=== PATIENT | male | born 1940 | race Caucasian/White ===

== ENCOUNTER 2017-10-20 09:09 | Inpatient (IN) | payer MEDICARE, MEDICAID ==
--- NOTE | 2017-10-20 10:01 | EDM.PDOC ---
ED HPI GENERAL MEDICAL PROBLEM - General Chief Complaint: Respiratory Problem Stated Complaint: CHEST PAIN, SHORTNESS OF BREATH Time Seen by Provider: 10/20/17 09:49 Source of Information: Reports: Patient History Limitations: Reports: No Limitations - History of Present Illness INITIAL COMMENTS - FREE TEXT/NARRATIVE: Patient is a 77-year-old gentleman who presents to the emergency department this morning with a complaint of cough, chest pain, shortness of breath. Patient states that it began about 6 o'clock this morning, felt like there was an ache/nondescriptive pain in the middle of this chest, lasted for a little more than one hour and then resolved spontaneously. Patient states that he does has been coughing recently. Patient was seen by cylinder sander operator in [place] yesterday, and according to him and his son, no chest x-ray was done and he had no complaint at that time. Patient has a history of pulmonary fibrosis and hypertension. Patient denies fever, trauma, nausea, vomiting, diarrhea, out of country travel, or productive cough. Onset: Today Onset Date: 10/20/17 Duration: Hour(s): Location: Reports: Chest Quality: Reports: Dull Severity: Mild Improves with: Reports: Other (Spontaneously) Context: Reports: Other (At rest) Associated Symptoms: Reports: Cough. Denies: cough w sputum Treatments FISH HATCHERY MANAGER: Reports: Oxygen - Related Data Allergies Allergy/AdvReac Type Severity Reaction Status Date / Time PEANUTS Allergy STUFFY NOSE Uncoded 10/20/17 09:33 Home Meds: Home Meds Aspirin [Halfprin] 81 mg PO DAILY 09/25/13 [History] Lisinopril [Zestril] 20 mg PO BID 09/25/13 [History] amLODIPine [Norvasc] 10 mg PO DAILY 09/25/13 [History] Albuterol/Ipratropium [DuoNeb 3.0-0.5 MG/3 ML] 3 ml INH QID PRN 10/20/17 [ History] Budesonide/Formoterol Fumarate [Symbicort 160-4.5 Mcg Inhaler] 2 puff IH BID 07/08 [History] LORazepam [Ativan] 0.5 mg PO QID PRN 10/20/17 [History] Metoprolol Succinate [Toprol Xl] 50 mg PO DAILY 10/20/17 [History] Sulfamethoxazole/Trimethoprim [Bactrim Ds Tablet] 1 each PO DAILY 10/20/17 [ History] atorvaSTATin [Lipitor] 10 mg PO BEDTIME 10/20/17 [History] predniSONE [Prednisone] 20 mg PO BID 10/20/17 [History] Past Medical History HEENT History: Reports: Impaired Vision, Other (See Below) 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 Cardiovascular History: Reports: Hypertension Respiratory History: Reports: Pulmonary Fibrosis Gastrointestinal History: Reports: None Genitourinary History: Reports: None Musculoskeletal History: Reports: None - Infectious Disease History Infectious Disease History: Reports: None - Past Surgical History Cardiovascular Surgical History: Reports: None GI Surgical History: Reports: Cholecystectomy Male Surgical History: Reports: None Musculoskeletal Surgical History: Reports: None Social & Family History - Family History Family Medical History: Noncontributory - Tobacco Use Smoking Status *Q: Never Smoker Second Hand Smoke Exposure: Yes - Caffeine Use Caffeine Use: Reports: Coffee, Soda, Tea - Alcohol Use Days Per Week of Alcohol Use: 1 Number of Drinks Per Day: 1 Total Drinks Per Week: 1 - Recreational Drug Use Recreational Drug Use: No ED ROS GENERAL - Review of Systems Review Of Systems: ROS reveals no pertinent complaints other than HPI. Constitutional: Reports: No Symptoms HEENT: Reports: No Symptoms Respiratory: Reports: Shortness of Breath, Pleuritic Chest Pain, Cough. Denies : Sputum Cardiovascular: Reports: Chest Pain Endocrine: Reports: No Symptoms GI/Abdominal: Reports: No Symptoms : Reports: No Symptoms Musculoskeletal: Reports: No Symptoms Skin: Reports: No Symptoms Neurological: Reports: No Symptoms Psychiatric: Reports: No Symptoms Hematologic/Lymphatic: Reports: No Symptoms Immunologic: Reports: No Symptoms ED EXAM, GENERAL - Physical Exam Exam: See Below Exam Limited By: No Limitations General Appearance: Alert, WD/WN, No Apparent Distress Nose: Normal Inspection, Normal Mucosa, No Blood Throat/Mouth: Normal Inspection, Normal Oropharynx, No Airway Compromise Head: Atraumatic, Normocephalic Neck: Normal Inspection, Supple, Non-Tender Respiratory/Chest: No Respiratory Distress, Rales (Bilaterally) Cardiovascular: Regular Rate, Rhythm, No Murmur GI/Abdominal: Normal Bowel Sounds, Soft, Non-Tender Back Exam: Normal Inspection. No: CVA Tenderness (L), CVA Tenderness (R) Extremities: Normal Inspection, Non-Tender, No Pedal Edema, Normal Capillary Refill Neurological: Alert, Oriented, Normal Cognition Psychiatric: Normal Affect, Normal Mood Skin Exam: Warm, Dry, Intact, Normal Color, No Rash Lymphatic: No Adenopathy EKG INTERPRETATION EKG Date: 10/20/17 Time: 09:30 Rhythm: NSR Rate (Beats/Min): 91 [place]: Normal P-Wave: Present QRS: Normal ST-T: Normal QT: Normal Course - Vital Signs Last Recorded V/S: Last Vital Signs Temp 99.0 F 10/20/17 09:20 Pulse 93 10/20/17 09:20 Resp 30 H 10/20/17 09:20 BP 126/52 L 10/20/17 09:20 Pulse Ox 92 L 10/20/17 09:20 - Orders/Labs/Meds Orders: Active Orders 24 hr Category Date Time Status EKG Documentation Completion [RC] ASDIRECTED Care 10/20/17 09:39 Active Chest 2V [CR] Stat Exams 10/20/17 09:50 Ordered COMPREHENSIVE METABOLIC PN,CMP [CHEM] Stat Lab 10/20/17 09:51 Ordered TROPONIN I [CHEM] Stat Lab 10/20/17 09:25 Received EKG 12 Lead [EK] Routine Ther 10/20/17 09:39 Ordered Labs: Laboratory Tests 10/20/17 Range/Units 09:25 WBC 18.1 H (5.0-10.0) 10^3/uL RBC 4.11 L (4.50-6.00) 10^6/uL Hgb 12.6 L (13.0-17.0) g/dL Hct 38.7 L (40.0-52.0) % MCV 94.2 H D (82.0-92.0) fL MCH 30.7 (27.0-31.0) pg MCHC 32.6 (32.0-36.0) g/dL RDW 15.1 H (11.5-14.5) % Plt Count 219 (150-300) 10^3/uL MPV 7.6 (7.4-10.4) fL Neut % (Auto) 84.4 H (50.0-70.0) % Lymph % (Auto) 10.4 L (20.0-40.0) % [place] % (Auto) 1.9 L (2.0-8.0) % Eos % (Auto) 0.6 L (1.0-3.0) % Baso % (Auto) 2.7 H (0.0-1.0) % Neut # (Auto) 15.3 H (2.5-7.0) 10^3/uL Lymph # (Auto) 1.9 (1.0-4.0) 10^3/uL [place] # (Auto) 0.3 (0.1-0.8) 10^3/uL Eos # (Auto) 0.1 (0.1-0.3) 10^3/uL Baso # (Auto) 0.5 H (0.0-0.1) 10^3/uL - Radiology Interpretation Free Text/Narrative:: Two-view chest x-ray read abnormal with no new obvious findings from previous CT on 2017 by radiology. However, concern for underlying pneumonia, left lower lobe with WBC elevated to 18 - Re-Assessments/Exams Free Text/Narrative Re-Assessment/Exam: 10/20/17 10:57 Patient afebrile, nontoxic appearing, vital signs stable. Discussed case with Kraig Cedillo, [facility] provider and patient will be admitted inpatient to their service. Departure - Departure Time of Disposition: 11:00 Disposition: Admitted As Inpatient 64 Condition: Fair Clinical Impression: Pulmonary fibrosis Pneumonia Qualifiers: Pneumonia type: due to unspecified organism Laterality: left Lung location: lower lobe of lung Qualified Code(s): J18.1 - Lobar pneumonia, unspecified organism - Discharge Information Referrals: Ayla Martines MD [Primary Care Provider] - - My Orders Last 24 Hours: My Active Orders 10/20/17 09:25 TROPONIN I [CHEM] Stat 10/20/17 09:39 EKG Documentation Completion [RC] ASDIRECTED EKG 12 Lead [EK] Routine 10/20/17 09:50 Chest 2V [CR] Stat 10/20/17 09:51 COMPREHENSIVE METABOLIC PN,CMP [CHEM] Stat - Assessment/Plan Last 24 Hours: My Active Orders 10/20/17 09:25 TROPONIN I [CHEM] Stat 10/20/17 09:39 EKG Documentation Completion [RC] ASDIRECTED EKG 12 Lead [EK] Routine 10/20/17 09:50 Chest 2V [CR] Stat 10/20/17 09:51 COMPREHENSIVE METABOLIC PN,CMP [CHEM] Stat Assessment:: Pneumonia Plan: Admit inpatient to [facility]
[2017-10-20 10:11] LABS: CHLORIDE,CL 98 mmol/L (98-115); SODIUM,NA 134 mmol/L (136-145)
[2017-10-20] MEDS ORDERED: cefTRIAXone 1 GM Vial IVPUSH ONE (10:18)
[2017-10-20] MEDS ORDERED: Azithromycin 250 MG Tab PO ONE (10:18)
[2017-10-20] MEDS ORDERED: Sodium Chloride 0.9% 1,000 ML IV ONE (10:33)
--- NOTE | 2017-10-20 12:22 | PCM.HP ---
H&P History of Present Illness - General Date of Service: 10/20/17 Admit Problem/Dx: Admission Diagnosis/Problem Admission Diagnosis/Problem Pneumonia Source of Information: Patient, Old Records, Provider, RN History Limitations: Reports: No Limitations - Related Data Allergies/Adverse Reactions: Allergies Allergy/AdvReac Type Severity Reaction Status Date / Time PEANUTS Allergy STUFFY NOSE Uncoded 10/20/17 09:33 Home Medications: Home Meds Aspirin [Halfprin] 81 mg PO DAILY 09/25/13 [History] Lisinopril [Zestril] 40 mg PO DAILY 09/25/13 [History] Albuterol/Ipratropium [DuoNeb 3.0-0.5 MG/3 ML] 3 ml INH QID PRN 10/20/17 [ History] Budesonide/Formoterol Fumarate [Symbicort 160-4.5 Mcg Inhaler] 2 puff IH BID 07/08 [History] LORazepam [Ativan] 0.5 mg PO QID PRN 10/20/17 [History] Metoprolol Succinate [Toprol Xl] 50 mg PO DAILY 10/20/17 [History] atorvaSTATin [Lipitor] 10 mg PO DAILY 10/20/17 [History] predniSONE [Prednisone] 20 mg PO BID 10/20/17 [History] Levofloxacin [Levaquin] 750 mg PO DAILY #5 tab 10/23/17 [Rx] Past Medical History HEENT History: Reports: Impaired Vision, Other (See Below) 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 Cardiovascular History: Reports: Hypertension Respiratory History: Reports: Pulmonary Fibrosis Gastrointestinal History: Reports: None Genitourinary History: Reports: None Musculoskeletal History: Reports: None - Infectious Disease History Infectious Disease History: Reports: None - Past Surgical History Cardiovascular Surgical History: Reports: None GI Surgical History: Reports: Cholecystectomy Male Surgical History: Reports: None Musculoskeletal Surgical History: Reports: None Social & Family History - Family History Cardiac: Reports: None Respiratory: Reports: Interstitial Lung Disease GI: Reports: None : Reports: None OBGYN: Reports: None Musculoskeletal: Reports: None Neurological: Reports: None Psychiatric: Reports: None Endocrine/Metabolic: Reports: None Hematologic: Reports: None Immunologic: Reports: None Dermatologic: Reports: None Oncologic: Reports: None - Tobacco Use Smoking Status *Q: Never Smoker Second Hand Smoke Exposure: No - Caffeine Use Caffeine Use: Reports: Tea - Alcohol Use Days Per Week of Alcohol Use: 1 Number of Drinks Per Day: 1 Total Drinks Per Week: 1 - Recreational Drug Use Recreational Drug Use: No H&P Review of Systems - Review of Systems: Review Of Systems: See Below General: Reports: Malaise. Denies: Weight Loss, Weight Gain HEENT: Reports: No Symptoms Pulmonary: Reports: Shortness of Breath, Cough, Sputum Cardiovascular: Reports: Dyspnea on Exertion, Blood Pressure Problem. Denies: Chest Pain, Edema Exam - Exam Exam: See Below - Vital Signs Vital Signs: Last Vital Signs Temp 99.0 F 10/20/17 09:20 Pulse 85 10/20/17 10:45 Resp 30 H 10/20/17 10:45 BP 107/39 L 10/20/17 10:45 Pulse Ox 92 L 10/20/17 11:02 Weight: 140 lb - Exam Quality Assessment: Supplemental Oxygen General: Alert, Oriented, Mild Distress HEENT: Mucosa Moist & [place] Neck: Supple Lungs: Rales, Rhonchi. No: Normal Respiratory Effort, Rub, Stridor Cardiovascular: Normal S1, Normal S2 - Patient Data Lab Results Last 24 hrs: Laboratory Results - last 24 hr 10/20/17 10/20/17 10/20/17 Range/Units 09:25 09:25 09:25 WBC 18.1 H (5.0-10.0) 10^3/uL RBC 4.11 L (4.50-6.00) 10^6/uL Hgb 12.6 L (13.0-17.0) g/dL Hct 38.7 L (40.0-52.0) % MCV 94.2 H D (82.0-92.0) fL MCH 30.7 (27.0-31.0) pg MCHC 32.6 (32.0-36.0) g/dL RDW 15.1 H (11.5-14.5) % Plt Count 219 (150-300) 10^3/uL MPV 7.6 (7.4-10.4) fL Neut % (Auto) 84.4 H (50.0-70.0) % Lymph % (Auto) 10.4 L (20.0-40.0) % [place] % (Auto) 1.9 L (2.0-8.0) % Eos % (Auto) 0.6 L (1.0-3.0) % Baso % (Auto) 2.7 H (0.0-1.0) % Neut # (Auto) 15.3 H (2.5-7.0) 10^3/uL Lymph # (Auto) 1.9 (1.0-4.0) 10^3/uL [place] # (Auto) 0.3 (0.1-0.8) 10^3/uL Eos # (Auto) 0.1 (0.1-0.3) 10^3/uL Baso # (Auto) 0.5 H (0.0-0.1) 10^3/uL Sodium 134 L (136-145) mmol/L Potassium 3.9 (3.3-5.3) mmol/L Chloride 98 (98-115) mmol/L Carbon Dioxide 33.1 H (21.0-32.0) mmol/L BUN 24 (6-25) mg/dL Creatinine 0.72 (0.51-1.17) mg/dL Est Cr Clr Drug Dosing 74.72 mL/min Estimated GFR (MDRD) > 60 mL/min Glucose 83 (70-110) mg/dL Calcium 8.3 L (8.7-10.3) mg/dL Total Bilirubin 0.4 (0.2-1.0) mg/dL AST 14 L (15-37) U/L ALT 28 (12-78) U/L Alkaline Phosphatase 47 (46-116) IU/L Troponin I 0.04 (0.00-0.070) ng/mL B-Natriuretic Peptide (0-100) pg/mL Total Protein 6.0 L (6.4-8.2) g/dL Albumin 2.22 L (3.00-4.80) g/dL 10/20/17 Range/Units 09:25 WBC (5.0-10.0) 10^3/uL RBC (4.50-6.00) 10^6/uL Hgb (13.0-17.0) g/dL Hct (40.0-52.0) % MCV (82.0-92.0) fL MCH (27.0-31.0) pg MCHC (32.0-36.0) g/dL RDW (11.5-14.5) % Plt Count (150-300) 10^3/uL MPV (7.4-10.4) fL Neut % (Auto) (50.0-70.0) % Lymph % (Auto) (20.0-40.0) % [place] % (Auto) (2.0-8.0) % Eos % (Auto) (1.0-3.0) % Baso % (Auto) (0.0-1.0) % Neut # (Auto) (2.5-7.0) 10^3/uL Lymph # (Auto) (1.0-4.0) 10^3/uL [place] # (Auto) (0.1-0.8) 10^3/uL Eos # (Auto) (0.1-0.3) 10^3/uL Baso # (Auto) (0.0-0.1) 10^3/uL Sodium (136-145) mmol/L Potassium (3.3-5.3) mmol/L Chloride (98-115) mmol/L Carbon Dioxide (21.0-32.0) mmol/L BUN (6-25) mg/dL Creatinine (0.51-1.17) mg/dL Est Cr Clr Drug Dosing mL/min Estimated GFR (MDRD) mL/min Glucose (70-110) mg/dL Calcium (8.7-10.3) mg/dL Total Bilirubin (0.2-1.0) mg/dL AST (15-37) U/L ALT (12-78) U/L Alkaline Phosphatase (46-116) IU/L Troponin I (0.00-0.070) ng/mL B-Natriuretic Peptide 31 (0-100) pg/mL Total Protein (6.4-8.2) g/dL Albumin (3.00-4.80) g/dL Result Diagrams: 10/22/17 07:10 10/22/17 07:10 Problem List Initiated/Reviewed/Updated: Yes Orders Last 24hrs: Active Orders 24 hr Category Date Time Status Patient Status [ADT] Routine ADT 10/20/17 11:02 Ordered EKG Documentation Completion [RC] ASDIRECTED Care 10/20/17 09:39 Active Oxygen Therapy [RC] PRN Care 10/20/17 11:02 Active Peripheral IV Care [RC] . DIRECTED Care 10/20/17 10:33 Active VTE/DVT Education [RC] PER UNIT ROUTINE Care 10/20/17 11:02 Active Vital Signs [RC] 0300,0700,1100,1500,1900,2300 Care 10/20/17 11:02 Active Regular Diet [DIET] Diet 10/20/17 Dinner Active Chest 2V [CR] Stat Exams 10/20/17 09:50 Taken CULTURE BLOOD [BC] Stat Lab 10/20/17 11:25 Received CULTURE BLOOD [BC] Stat Lab 10/20/17 11:31 Received Sodium Chloride 0.9% [Syrex Flush] Med 10/20/17 10:33 Active 5 ml FLUSH Q8HR PRN Blood Culture x2 Reflex Set [OM.PC] Stat Oth 10/20/17 12:00 Ordered Peripheral IV Insertion Adult [OM.PC] Routine Oth 10/20/17 10:33 Ordered Resuscitation Status Routine Resus Stat 10/20/17 11:02 Ordered Medication Orders Sodium Chloride (Syrex Flush) 5 ml FLUSH Q8HR PRN PRN Reason: Keep Vein Open Assessment/Plan Comment:: HISTORY OF PRESENT ILLNESS This 77-year-old gentleman was admitted through the ED due to cough chest pain and shortness of breath that seems to be recent. Patient had been seen by pulmonology just yesterday for routine follow-up October 19, 2017 stated he felt his usual self. Patient does have significant pulmonary interstitial fibrosis that is quite progressive. He present to the ED this morning when he started having chest pain middle chest lasting about an hour which then resolves spontaneously. No fever, he had been on Bactrim. Pertinent ED workup, Chest x-ray, likely left lobe infiltrate White count 18,000 Neutrophilia Hypotension Troponin negative Bolus fluids Primary problems, Pneumonia, POA, left base Pulmonary fibrosis, significant and progressive Interstitial lung disease Hypotension, Dehydration Chronic problems HTN, now low HLD, statin Oxygen dependent Overall plan, admit to inpatient, sputum culture, blood cultures, lactic acid, change antibiotics to Levaquin, monitor electrolytes, hold off on chest CT for now, monitor for any impending respiratory failure, 60 mg oral prednisone, duo nebs, hold Symbicort, hold antihypertensives for now. LMWH for DVT prophylaxis Patient is a DO NOT RESUSCITATE and desires to have care here at [facility] , we will have to monitor him carefully, telemetry status
[2017-10-20] MEDS ORDERED: LORazepam 0.5 MG Tab PO PRN (12:30)
[2017-10-20] MEDS ORDERED: Sodium Chloride 0.9% 100 ML ONE (13:05)
[2017-10-20] MEDS: predniSONE 20 MG Tab PO SCH (13:09)
[2017-10-20] MEDS: Levofloxacin/Dextrose 5%-Water 500 MG in Premix Bag 1 BAG IV SCH (13:10)
[2017-10-20] MEDS: Enoxaparin 30 MG/0.3 ML Syringe SUBCUT SCH (13:20)
[2017-10-20] MEDS: Albuterol/Ipratropium 3.0-0.5 MG/3 ML Neb Soln NEB SCH ×3 (13:22→20:49)
[2017-10-20] MEDS: Levofloxacin/Dextrose 5%-Water 250 MG in Premix Bag 1 BAG IV SCH (14:25)
[2017-10-21] MEDS: Albuterol/Ipratropium 3.0-0.5 MG/3 ML Neb Soln NEB SCH ×6 (00:51→20:42)
[2017-10-21] MEDS ORDERED: EPINEPHrine 1:10,000 1 MG/10 ML Syringe IVPUSH PRN (01:52)
[2017-10-21] MEDS ORDERED: Lidocaine 2% 100 MG/5 ML Syringe IVPUSH PRN (01:52)
[2017-10-21] MEDS ORDERED: Nitroglycerin 0.4 MG Tab.SL SL PRN (01:52)
[2017-10-21] MEDS ORDERED: Atropine 0.1 MG/ML 10 ML Syringe IVPUSH PRN (01:52)
[2017-10-21] MEDS: Sodium Chloride 0.9% 5 ML Syringe FLUSH PRN ×2 (05:57→12:58)
[2017-10-21 08:02] LABS: CHLORIDE,CL 101 mmol/L (98-115); SODIUM,NA 137 mmol/L (136-145)
[2017-10-21] MEDS: predniSONE 20 MG Tab PO SCH (08:08)
[2017-10-21] MEDS: Aspirin 81 MG Tab.EC PO SCH (08:09)
--- NOTE | 2017-10-21 11:11 | PCM.PN ---
- General Info Date of Service: 10/21/17 Functional Status: Reports: Pain Controlled, Tolerating Diet. Denies: Ambulating, New Symptoms, Incentive Spirometry - Review of Systems General: Reports: Weakness. Denies: Night Sweats HEENT: Reports: Glasses. Denies: Post Nasal Drip, Sinus Congestion Pulmonary: Reports: Shortness of Breath, Cough, Wheezing. Denies: Sputum Cardiovascular: Reports: Dyspnea on Exertion. Denies: Orthopnea, PND Gastrointestinal: Reports: No Symptoms Genitourinary: Reports: No Symptoms Musculoskeletal: Reports: No Symptoms Skin: Reports: No Symptoms Neurological: Reports: No Symptoms Psychiatric: Reports: No Symptoms - Patient Data Vitals - Most Recent: Last Vital Signs Temp 99.1 F 10/21/17 05:55 Pulse 74 10/21/17 09:00 Resp 28 H 10/21/17 05:55 BP 120/64 10/21/17 05:55 Pulse Ox 97 10/21/17 09:00 Weight - Most Recent: 128 lb I&O - Last 24 Hours: Intake & Output 10/20/17 10/21/17 10/21/17 22:59 06:59 14:59 Intake Total 1550 0 Output Total 300 250 Balance 1250 -250 Lab Results Last 24 Hours: Laboratory Results - last 24 hr 10/20/17 10/20/17 10/21/17 Range/Units 09:25 14:15 07:20 WBC (5.0-10.0) 10^3/uL RBC (4.50-6.00) 10^6/uL Hgb (13.0-17.0) g/dL Hct (40.0-52.0) % MCV (82.0-92.0) fL MCH (27.0-31.0) pg MCHC (32.0-36.0) g/dL RDW (11.5-14.5) % Plt Count (150-300) 10^3/uL MPV (7.4-10.4) fL Neut % (Auto) (50.0-70.0) % Lymph % (Auto) (20.0-40.0) % [place] % (Auto) (2.0-8.0) % Eos % (Auto) (1.0-3.0) % Baso % (Auto) (0.0-1.0) % Neut # (Auto) (2.5-7.0) 10^3/uL Lymph # (Auto) (1.0-4.0) 10^3/uL [place] # (Auto) (0.1-0.8) 10^3/uL Eos # (Auto) (0.1-0.3) 10^3/uL Baso # (Auto) (0.0-0.1) 10^3/uL ESR 40 H (0-15) mm/hr Sodium 137 (136-145) mmol/L Potassium 4.0 (3.3-5.3) mmol/L Chloride 101 (98-115) mmol/L Carbon Dioxide 32.7 H (21.0-32.0) mmol/L BUN 15 (6-25) mg/dL Creatinine 0.59 (0.51-1.17) mg/dL Est Cr Clr Drug Dosing 83.37 mL/min Estimated GFR (MDRD) > 60 mL/min Glucose 113 H (70-110) mg/dL Lactic Acid 1.2 (0.4-2.0) mmol/L Calcium 8.3 L (8.7-10.3) mg/dL 10/21/17 Range/Units 07:20 WBC 11.7 H (5.0-10.0) 10^3/uL RBC 3.41 L (4.50-6.00) 10^6/uL Hgb 10.6 L D (13.0-17.0) g/dL Hct 32.1 L (40.0-52.0) % MCV 94.1 H (82.0-92.0) fL MCH 31.1 H (27.0-31.0) pg MCHC 33.0 (32.0-36.0) g/dL RDW 15.1 H (11.5-14.5) % Plt Count 161 (150-300) 10^3/uL MPV 7.5 (7.4-10.4) fL Neut % (Auto) 88.6 H (50.0-70.0) % Lymph % (Auto) 5.9 L (20.0-40.0) % [place] % (Auto) 4.6 (2.0-8.0) % Eos % (Auto) 0.2 L (1.0-3.0) % Baso % (Auto) 0.7 (0.0-1.0) % Neut # (Auto) 10.4 H (2.5-7.0) 10^3/uL Lymph # (Auto) 0.7 L (1.0-4.0) 10^3/uL [place] # (Auto) 0.5 (0.1-0.8) 10^3/uL Eos # (Auto) 0.0 L (0.1-0.3) 10^3/uL Baso # (Auto) 0.1 (0.0-0.1) 10^3/uL ESR (0-15) mm/hr Sodium (136-145) mmol/L Potassium (3.3-5.3) mmol/L Chloride (98-115) mmol/L Carbon Dioxide (21.0-32.0) mmol/L BUN (6-25) mg/dL Creatinine (0.51-1.17) mg/dL Est Cr Clr Drug Dosing mL/min Estimated GFR (MDRD) mL/min Glucose (70-110) mg/dL Lactic Acid (0.4-2.0) mmol/L Calcium (8.7-10.3) mg/dL Med Orders - Current: Current Medications Albuterol/Ipratropium (Duoneb 3.0-0.5 Mg/3 Ml) 3 ml NEB Q4HRRT [facility] Last Admin: 10/21/17 09:08 Dose: 3 ml Aspirin (Halfprin) 81 mg PO DAILY [facility] Last Admin: 10/21/17 08:09 Dose: 81 mg Atropine Sulfate (Atropine 0.1 Mg/Ml) 0 mg IVPUSH ASDIRECTED PRN PRN Reason: Heart Enoxaparin Sodium (Lovenox) 30 mg SUBCUT Q24H [facility] Last Admin: 10/20/17 13:20 Dose: 30 mg Epinephrine HCl (Epinephrine 1:10,000) 1 mg IVPUSH ASDIRECTED PRN PRN Reason: Heart Levofloxacin/Dextrose 250 mg/ (Premix) 50 mls @ 50 mls/hr IV Q24H [facility] Last Admin: 10/20/17 14:25 Dose: 50 mls/hr Levofloxacin/Dextrose 500 mg/ (Premix) 100 mls @ 100 mls/hr IV Q24H [facility] Last Admin: 10/20/17 13:10 Dose: 100 mls/hr Lidocaine HCl (Xylocaine 2%) 0 mg IVPUSH ASDIRECTED PRN PRN Reason: Heart Lorazepam (Ativan) 0.5 mg PO QID PRN PRN Reason: Anxiety Nitroglycerin (Nitrostat) 0.4 mg SL ASDIRECTED PRN PRN Reason: Heart Prednisone (Prednisone) 60 mg PO WITHBREAKFAST LAURITA Last Admin: 10/21/17 08:08 Dose: 60 mg Sodium Chloride (Syrex Flush) 5 ml FLUSH Q8HR PRN PRN Reason: Keep Vein Open Last Admin: 10/21/17 05:57 Dose: 5 ml Discontinued Medications Azithromycin (Zithromax) 500 mg PO ONETIME ONE Stop: 10/20/17 10:19 Last Admin: 10/20/17 10:25 Dose: 500 mg Ceftriaxone Sodium (Rocephin) 1 gm IVPUSH ONETIME ONE Stop: 10/20/17 10:19 Last Admin: 10/20/17 10:24 Dose: 1 gm Sodium Chloride (Normal Saline) 1,000 mls @ 999 mls/hr IV .BOLUS ONE Stop: 10/20/17 11:33 Last Admin: 10/20/17 10:38 Dose: 999 mls/hr Sodium Chloride (Normal Saline) Confirm Administered Dose 100 mls @ as directed .ROUTE .STK-MED ONE Stop: 10/20/17 13:06 Last Admin: 10/20/17 13:44 Dose: 35 mls/hr - Exam Quality Assessment: No: Supplemental Oxygen General: Alert, Oriented Neck: No JVD Lungs: Crackles (diffuse fibrotic crackles. ) GI/Abdominal Exam: Soft, Non-Tender (Male) Exam: Deferred Extremities: No: Pedal Edema Peripheral Pulses: 2+: Radial (L), Radial (R) Neurological: No New Focal Deficit Psy/Mental Status: Alert, Normal Affect, Normal Mood - Problem List Review Problem List Initiated/Reviewed/Updated: Yes - My Orders Last 24 Hours: My Active Orders 10/20/17 11:25 CULTURE BLOOD [BC] Stat 10/20/17 11:31 CULTURE BLOOD [BC] Stat 10/20/17 12:00 Blood Culture x2 Reflex Set [OM.PC] Stat 10/20/17 12:27 Blood Culture x2 Reflex Set [OM.PC] Stat 10/20/17 12:30 RT Arterial Blood Gases, ABG [RC] Click to Edit LORazepam [Ativan] 0.5 mg PO QID PRN 10/20/17 12:38 Telemetry Monitoring [Cardiac Monitoring] [RC] 2300,0300,0700,1100,1500,1900 10/20/17 12:40 RT Aerosol Therapy [RC] 0100,0500,0900,1300,1700,2100 10/20/17 12:43 predniSONE 60 mg PO WITHBREAKFAST 10/20/17 12:47 Consult to Dietary [Consult to Lithographic Plate Maker] [CONS] Routine 10/20/17 13:00 Albuterol/Ipratropium [DuoNeb 3.0-0.5 MG/3 ML] 3 ml NEB Q4HRRT Enoxaparin [Lovenox] 30 mg SUBCUT Q24H Levofloxacin/Dextrose 5%-Water [Levaquin in D5W 250 MG/50 ML] 250 mg Premix Bag 1 bag IV Q24H Levofloxacin/Dextrose 5%-Water [Levaquin in D5W 500 MG/100 ML] 500 mg Premix Bag 1 bag IV Q24H 10/20/17 Dinner Regular Diet [DIET] 10/21/17 01:52 Atropine [Atropine 0.1 MG/ML] 0 mg IVPUSH ASDIRECTED PRN EPINEPHrine [EPINEPHrine 1:10,000] 1 mg IVPUSH ASDIRECTED PRN Lidocaine 2% [Xylocaine 2%] 0 mg IVPUSH ASDIRECTED PRN Nitroglycerin [Nitrostat] 0.4 mg SL ASDIRECTED PRN 10/21/17 09:00 Aspirin [Halfprin] 81 mg PO DAILY - Plan Plan:: HISTORY OF PRESENT ILLNESS This 77-year-old gentleman was admitted through the ED due to cough chest pain and shortness of breath that seems to be recent. Patient had been seen by pulmonology just yesterday for routine follow-up October 19, 2017 stated he felt his usual self. Patient does have significant pulmonary interstitial fibrosis that is quite progressive. He present to the ED this morning when he started having chest pain middle chest lasting about an hour which then resolves spontaneously. No fever, he had been on Bactrim. Patient required ongoing orders, labs, medication reconciliation, antibiotic changes, after arriving to floor from ED. Pertinent ED workup, Chest x-ray, pneumonitis, White count 18,000 Neutrophilia Hypotension Troponin negative Bolus fluids Primary problems, Pneumonia/pneumonitis POA, Pulmonary fibrosis, significant and progressive Interstitial lung disease Chronic problems HTN, HLD, statin Oxygen dependent Update on rounds today No overnight call/concerns from nursing staff, Significant improvement in shortness of breath, less cough patient feels much better desiring to go home, VSS, no fever, pox 97% afebrile, no sputum production, white count improving, neutrophilia, electrolytes normal, required fluid resuscitation on admission due to dehydration, however now taking adequate orals, lactic acid after hydration 1.2, qSOFA 1/3 Overall plan, continue with inpatient--discuss this with patient that his best interest, although patient desires to return home, patient made significant progress overnight, sputum culture, BC surveillance, scheduled B2, Levaquin, monitor electrolytes, hold off on chest CT, impending respiratory failure much less likely now, 60 mg oral prednisone, duo nebs, hold Symbicort, hold antihypertensives for now. LMWH for DVT prophylaxis Patient is a DO NOT RESUSCITATE
[2017-10-21] MEDS: Enoxaparin 30 MG/0.3 ML Syringe SUBCUT SCH (12:57)
[2017-10-21] MEDS: Levofloxacin/Dextrose 5%-Water 500 MG in Premix Bag 1 BAG IV SCH (13:01)
[2017-10-21] MEDS: Levofloxacin/Dextrose 5%-Water 250 MG in Premix Bag 1 BAG IV SCH (14:27)
[2017-10-22] MEDS: Albuterol/Ipratropium 3.0-0.5 MG/3 ML Neb Soln NEB SCH ×5 (00:57→20:34)
[2017-10-22 07:44] LABS: CHLORIDE,CL 99 mmol/L (98-115); SODIUM,NA 138 mmol/L (136-145)
[2017-10-22] MEDS: Aspirin 81 MG Tab.EC PO SCH (08:04)
[2017-10-22] MEDS: predniSONE 20 MG Tab PO SCH (08:04)
--- NOTE | 2017-10-22 09:25 | PCM.PN ---
- General Info Date of Service: 10/22/17 Functional Status: Reports: Pain Controlled, Tolerating Diet, Ambulating ( Ambulating in room), New Symptoms (Pain coccyx area new complaint) - Review of Systems General: Reports: No Symptoms HEENT: Reports: Glasses Pulmonary: Reports: Shortness of Breath, Wheezing. Denies: Pleuritic Chest Pain , Cough, Sputum Cardiovascular: Reports: Dyspnea on Exertion Gastrointestinal: Reports: No Symptoms Genitourinary: Reports: No Symptoms Musculoskeletal: Reports: No Symptoms Skin: Reports: Other (Redness coccyx area painful upon sitting) Neurological: Reports: No Symptoms Psychiatric: Reports: No Symptoms - Patient Data Vitals - Most Recent: Last Vital Signs Temp 98.6 F 10/22/17 06:47 Pulse 76 10/22/17 06:47 Resp 24 H 10/22/17 06:47 BP 136/73 10/22/17 06:47 Pulse Ox 98 10/22/17 06:47 Weight - Most Recent: 128 lb I&O - Last 24 Hours: Intake & Output 10/21/17 10/22/17 10/22/17 22:59 06:59 14:59 Intake Total 540 50 Output Total 700 Balance 540 -650 Lab Results Last 24 Hours: Laboratory Results - last 24 hr 10/22/17 10/22/17 Range/Units 07:10 07:10 WBC 10.0 (5.0-10.0) 10^3/uL RBC 3.53 L (4.50-6.00) 10^6/uL Hgb 11.0 L (13.0-17.0) g/dL Hct 33.3 L (40.0-52.0) % MCV 94.2 H (82.0-92.0) fL MCH 31.0 (27.0-31.0) pg MCHC 32.9 (32.0-36.0) g/dL RDW 14.5 (11.5-14.5) % Plt Count 161 (150-300) 10^3/uL MPV 7.1 L (7.4-10.4) fL Neut % (Auto) 86.1 H (50.0-70.0) % Lymph % (Auto) 7.7 L (20.0-40.0) % Rowan % (Auto) 4.9 (2.0-8.0) % Eos % (Auto) 0.5 L (1.0-3.0) % Baso % (Auto) 0.8 (0.0-1.0) % Neut # (Auto) 8.6 H (2.5-7.0) 10^3/uL Lymph # (Auto) 0.8 L (1.0-4.0) 10^3/uL Rowan # (Auto) 0.5 (0.1-0.8) 10^3/uL Eos # (Auto) 0.0 L (0.1-0.3) 10^3/uL Baso # (Auto) 0.1 (0.0-0.1) 10^3/uL Sodium 138 (136-145) mmol/L Potassium 4.0 (3.3-5.3) mmol/L Chloride 99 (98-115) mmol/L Carbon Dioxide 33.3 H (21.0-32.0) mmol/L BUN 12 (6-25) mg/dL Creatinine 0.64 (0.51-1.17) mg/dL Est Cr Clr Drug Dosing 76.56 mL/min Estimated GFR (MDRD) > 60 mL/min Glucose 94 (70-110) mg/dL Calcium 8.4 L (8.7-10.3) mg/dL Stuart Results Last 24 Hours: Microbiology 10/20/17 11:31 Aerobic Blood Culture - Preliminary Blood - Venous - Lab Draw NO GROWTH AFTER 1 DAY Anaerobic Blood Culture - Preliminary NO GROWTH AFTER 1 DAY 10/20/17 11:25 Aerobic Blood Culture - Preliminary Blood - Venous NO GROWTH AFTER 1 DAY Anaerobic Blood Culture - Preliminary NO GROWTH AFTER 1 DAY Med Orders - Current: Current Medications Albuterol/Ipratropium (Duoneb 3.0-0.5 Mg/3 Ml) 3 ml NEB Q4HRRT [facility] Last Admin: 10/22/17 05:22 Dose: 3 ml Aspirin (Halfprin) 81 mg PO DAILY [facility] Last Admin: 10/22/17 08:04 Dose: 81 mg Enoxaparin Sodium (Lovenox) 30 mg SUBCUT Q24H [facility] Last Admin: 10/21/17 12:57 Dose: 30 mg Levofloxacin/Dextrose 250 mg/ (Premix) 50 mls @ 50 mls/hr IV Q24H [facility] Last Admin: 10/21/17 14:27 Dose: 50 mls/hr Levofloxacin/Dextrose 500 mg/ (Premix) 100 mls @ 100 mls/hr IV Q24H [facility] Last Admin: 10/21/17 13:01 Dose: 100 mls/hr Lorazepam (Ativan) 0.5 mg PO QID PRN PRN Reason: Anxiety Nitroglycerin (Nitrostat) 0.4 mg SL ASDIRECTED PRN PRN Reason: Heart Prednisone (Prednisone) 60 mg PO WITHBREAKFAST [facility] Last Admin: 10/22/17 08:04 Dose: 60 mg Sodium Chloride (Syrex Flush) 5 ml FLUSH Q8HR PRN PRN Reason: Keep Vein Open Last Admin: 10/21/17 12:58 Dose: 5 ml Discontinued Medications Atropine Sulfate (Atropine 0.1 Mg/Ml) 0 mg IVPUSH ASDIRECTED PRN PRN Reason: Heart Azithromycin (Zithromax) 500 mg PO ONETIME ONE Stop: 10/20/17 10:19 Last Admin: 10/20/17 10:25 Dose: 500 mg Ceftriaxone Sodium (Rocephin) 1 gm IVPUSH ONETIME ONE Stop: 10/20/17 10:19 Last Admin: 10/20/17 10:24 Dose: 1 gm Epinephrine HCl (Epinephrine 1:10,000) 1 mg IVPUSH ASDIRECTED PRN PRN Reason: Heart Sodium Chloride (Normal Saline) 1,000 mls @ 999 mls/hr IV .BOLUS ONE Stop: 10/20/17 11:33 Last Admin: 10/20/17 10:38 Dose: 999 mls/hr Sodium Chloride (Normal Saline) Confirm Administered Dose 100 mls @ as directed .ROUTE .STK-MED ONE Stop: 10/20/17 13:06 Last Admin: 10/20/17 13:44 Dose: 35 mls/hr Lidocaine HCl (Xylocaine 2%) 0 mg IVPUSH ASDIRECTED PRN PRN Reason: Heart - Exam Quality Assessment: Supplemental Oxygen, Skin Breakdown (Stage I coccyx area-- redness) General: Alert, Oriented HEENT: Mucous Membr. Moist/[place] Neck: No JVD Lungs: Crackles (Diffuse extensive fibrotic crackles throughout all lung monk) . No: Normal Respiratory Effort, Rhonchi, Wheezing Cardiovascular: Regular Rate, Regular Rhythm, No Murmurs GI/Abdominal Exam: Soft Extremities: No Pedal Edema Peripheral Pulses: 2+: Radial (L), Radial (R) Skin: Intact, Other (Redness lower sacral coccyx area, open area) Neurological: No New Focal Deficit Psy/Mental Status: Alert, Normal Affect, Normal Mood - Problem List Review Problem List Initiated/Reviewed/Updated: Yes - My Orders Last 24 Hours: My Active Orders 10/21/17 09:00 Aspirin [Halfprin] 81 mg PO DAILY - Plan Plan:: HISTORY OF PRESENT ILLNESS This 77-year-old gentleman was admitted through the ED due to cough chest pain and shortness of breath that seems to be recent. Patient had been seen by pulmonology just yesterday for routine follow-up October 19, 2017 stated he felt his usual self. Patient does have significant pulmonary interstitial fibrosis that is quite progressive. He present to the ED this morning when he started having chest pain middle chest lasting about an hour which then resolves spontaneously. No fever, he had been on Bactrim. Patient required ongoing orders, labs, medication reconciliation, antibiotic changes, after arriving to floor from ED. Pertinent ED workup, Chest x-ray, pneumonitis, White count 18,000 Neutrophilia Hypotension Troponin negative Bolus fluids Primary problems, Pneumonia/pneumonitis POA, Pulmonary fibrosis, significant and progressive Interstitial lung disease Stage I sacral skin, newly present Chronic problems HTN, HLD, statin Oxygen dependent Update on rounds today No overnight call/concerns from nursing staff, Significant improvement in shortness of breath, no longer has cough, feeling better, new complaint painful coccyx area, VSS, no fever, pox 97% afebrile, no sputum production, white count now normal, improving neutrophilia, electrolytes normal, required fluid resuscitation on admission due to dehydration, however now taking adequate orals, lactic acid after hydration 1.2, qSOFA 1/3 Overall plan, continue with inpatient--discuss this with patient that his best interest, patient made significant progress but given his pulmonary fragility could benefit from one more day IV antibiotics/acute care. Blood culture surveillance no growth so far, decrease scheduled B2, Levaquin, monitor electrolytes, hold off on chest CT, decrease oral prednisone, duo nebs, start back up on home Symbicort, start back up on home metoprolol and CATHERINE inhibitor, hold CCB until discharge, ambulate in halls today, add H2 sangita for GI prophylaxis, DuoDERM for sacral breakdown, offloading, LMWH for DVT prophylaxis. Anticipate discharge to home with close follow-up outpatient tomorrow. Patient is a DO NOT RESUSCITATE
[2017-10-22] MEDS ORDERED: Non-Formulary Medication 1 Each (Budesonide/Formoterol Fumarate [Symbicort 160-4.5 Mcg Inh IH SCH (09:30)
[2017-10-22] MEDS: Metoprolol Succinate 50 MG Tab.ER PO SCH (10:36)
[2017-10-22] MEDS: Lisinopril 20 MG Tab PO SCH (10:36)
[2017-10-22] MEDS: Levofloxacin/Dextrose 5%-Water 250 MG in Premix Bag 1 BAG IV SCH (13:12)
[2017-10-22] MEDS: Enoxaparin 30 MG/0.3 ML Syringe SUBCUT SCH (13:18)
[2017-10-22] MEDS: Levofloxacin/Dextrose 5%-Water 500 MG in Premix Bag 1 BAG IV SCH (14:21)
[2017-10-23] MEDS: Albuterol/Ipratropium 3.0-0.5 MG/3 ML Neb Soln NEB SCH ×2 (06:09→12:41)
[2017-10-23] MEDS ORDERED: predniSONE 20 MG Tab PO SCH (08:00)
[2017-10-23] MEDS: Metoprolol Succinate 50 MG Tab.ER PO SCH (08:02)
[2017-10-23] MEDS: Aspirin 81 MG Tab.EC PO SCH (08:02)
[2017-10-23] MEDS: Lisinopril 20 MG Tab PO SCH (08:05)
[2017-10-23 08:06] VITALS: BP 126/68
--- NOTE | 2017-10-23 10:28 | PCM.DCSUM1 ---
Discharge Summary - Discharge Data Discharge Date: 10/23/17 Discharge Disposition: Home, Self-Care 01 Condition: Fair - Patient Summary/Data Consults: Consultations 10/20/17 12:47 Consult to Dietary [Consult to [employer]] [CONS] Routine - Patient Instructions Diet: Usual Diet as Tolerated, Drink 8-10+ Glasses/Day Activity: As Tolerated, Cough & Deep Breathe Activity, Other: Avoid outdoor humidity and dust, where mask if exposed to environmental dus Notify Provider of: Fever, Nausea and/or Vomiting Other/Special Instructions: Report any worsening shortness of breath - Discharge Plan Prescriptions/Med Rec: Levofloxacin [Levaquin] 750 mg PO DAILY #5 tab Home Medications: Home Meds Aspirin [Halfprin] 81 mg PO DAILY 09/25/13 [History] Lisinopril [Zestril] 40 mg PO DAILY 09/25/13 [History] Albuterol/Ipratropium [DuoNeb 3.0-0.5 MG/3 ML] 3 ml INH QID PRN 10/20/17 [ History] Budesonide/Formoterol Fumarate [Symbicort 160-4.5 Mcg Inhaler] 2 puff IH BID 07/08 [History] LORazepam [Ativan] 0.5 mg PO QID PRN 10/20/17 [History] Metoprolol Succinate [Toprol Xl] 50 mg PO DAILY 10/20/17 [History] atorvaSTATin [Lipitor] 10 mg PO DAILY 10/20/17 [History] predniSONE [Prednisone] 20 mg PO BID 10/20/17 [History] Levofloxacin [Levaquin] 750 mg PO DAILY #5 tab 10/23/17 [Rx] Referrals: Kraig Cedillo, [employer] [Nurse Practitioner] - 11/02/17 - Discharge Summary/Plan Comment DC Time >30 min.: Yes Discharge Summary/Plan Comment: HISTORY This 77-year-old gentleman was admitted through the ED due to cough chest pain and shortness of breath that seems to be recent. Patient had been seen by pulmonology just yesterday for routine follow-up October 19, 2017 stated he felt his usual self. Patient does have significant pulmonary interstitial fibrosis that is quite progressive. He present to the ED this morning when he started having chest pain middle chest lasting about an hour which then resolves spontaneously. No fever, he had been on Bactrim. Pertinent ED workup, Chest x-ray, pneumonitis, White count 18,000 Neutrophilia Hypotension Troponin negative Bolus fluids Final diagnosis Pneumonia/pneumonitis POA, Pulmonary fibrosis, Interstitial lung disease Stage I sacral skin, HTN, discontinue CCB on discharge HLD, statin Oxygen dependent Hospital course Ages hospital course went quite well he responded appropriately to antibiotics with less shortness of breath, never had mucus production, white count now normal, oxygen saturations much improved, respiratory rate back to baseline, he remained on oxygen, see increase in steroids tapered down daily, he received IV antibiotics, held off on chest CT, he did have low blood pressure early on likely due to dehydration however responded to fluids, held antihypertensives early on however started them back slowly however discontinued calcium channel sangita amlodipine we'll reassess starting it back on follow-up. POX 97% afebrile, no sputum production, white count now normal, improving neutrophilia , electrolytes normal, required fluid resuscitation on admission due to dehydration, however now taking adequate orals, lactic acid after hydration 1.2 , qSOFA 1/3. Chest x-ray demonstrated pneumonitis, LMWH for DVT prophylaxis. Blood culture surveillance no growth. He was given do order for stage I sacral pressure Medication changes/adjustment on discharge Levaquin 750 mg by mouth daily 5 days Discontinued amlodipine, reassess on follow-up Placed back on restorative medications including Symbicort, P2, prednisone 20 mg by mouth twice a day per pulmonology consultation Genu home oxygen DuoDERM for sacral breakdown - Patient Data Vitals - Most Recent: Last Vital Signs Temp 99.5 F 10/23/17 06:01 Pulse 102 H 10/23/17 08:02 Resp 24 H 10/23/17 06:01 BP 126/68 10/23/17 08:05 Pulse Ox 97 10/23/17 06:09 Weight - Most Recent: 128 lb I&O - Last 24 hours: Intake & Output 10/22/17 10/23/17 10/23/17 22:59 06:59 14:59 Intake Total 300 0 Output Total 175 450 Balance 125 -450 Lab Results - Last 24 hrs: Laboratory Results - last 24 hr 10/20/17 Range/Units 09:25 Procalcitonin 0.06 (<0.10) ng/mL [facility] Results - Last 24 hrs: Microbiology 10/20/17 11:31 Aerobic Blood Culture - Preliminary Blood - Venous - Lab Draw NO GROWTH AFTER 2 DAYS Anaerobic Blood Culture - Preliminary NO GROWTH AFTER 2 DAYS 10/20/17 11:25 Aerobic Blood Culture - Preliminary Blood - Venous NO GROWTH AFTER 2 DAYS Anaerobic Blood Culture - Preliminary NO GROWTH AFTER 2 DAYS Med Orders - Current: Current Medications Albuterol/Ipratropium (Duoneb 3.0-0.5 Mg/3 Ml) 3 ml NEB Q8HRRT [facility] Last Admin: 10/23/17 06:09 Dose: 3 ml Aspirin (Halfprin) 81 mg PO DAILY [facility] Last Admin: 10/23/17 08:02 Dose: 81 mg Enoxaparin Sodium (Lovenox) 30 mg SUBCUT Q24H [facility] Last Admin: 10/22/17 13:18 Dose: 30 mg Levofloxacin/Dextrose 250 mg/ (Premix) 50 mls @ 50 mls/hr IV Q24H [facility] Last Admin: 10/22/17 13:12 Dose: 50 mls/hr Levofloxacin/Dextrose 500 mg/ (Premix) 100 mls @ 100 mls/hr IV Q24H [facility] Last Admin: 10/22/17 14:21 Dose: 100 mls/hr Lisinopril (Prinivil) 40 mg PO DAILY [facility] Last Admin: 10/23/17 08:05 Dose: 40 mg Lorazepam (Ativan) 0.5 mg PO QID PRN PRN Reason: Anxiety Metoprolol Succinate (Toprol Xl) 50 mg PO DAILY [facility] Last Admin: 10/23/17 08:02 Dose: 50 mg Prednisone (Prednisone) 40 mg PO WITHBREAKFAST [facility] Last Admin: 10/23/17 08:02 Dose: 40 mg Ranitidine HCl (Zantac) 150 mg PO DAILY [facility] Last Admin: 10/23/17 08:02 Dose: 150 mg Sodium Chloride (Syrex Flush) 5 ml FLUSH Q8HR PRN PRN Reason: Keep Vein Open Last Admin: 10/21/17 12:58 Dose: 5 ml Discontinued Medications Albuterol/Ipratropium (Duoneb 3.0-0.5 Mg/3 Ml) 3 ml NEB Q4HRRT [facility] Last Admin: 10/22/17 09:37 Dose: Not Given Atropine Sulfate (Atropine 0.1 Mg/Ml) 0 mg IVPUSH ASDIRECTED PRN PRN Reason: Heart Azithromycin (Zithromax) 500 mg PO ONETIME ONE Stop: 10/20/17 10:19 Last Admin: 10/20/17 10:25 Dose: 500 mg Ceftriaxone Sodium (Rocephin) 1 gm IVPUSH ONETIME ONE Stop: 10/20/17 10:19 Last Admin: 10/20/17 10:24 Dose: 1 gm Epinephrine HCl (Epinephrine 1:10,000) 1 mg IVPUSH ASDIRECTED PRN PRN Reason: Heart Sodium Chloride (Normal Saline) 1,000 mls @ 999 mls/hr IV .BOLUS ONE Stop: 10/20/17 11:33 Last Admin: 10/20/17 10:38 Dose: 999 mls/hr Sodium Chloride (Normal Saline) Confirm Administered Dose 100 mls @ as directed .ROUTE .STK-MED ONE Stop: 10/20/17 13:06 Last Admin: 10/20/17 13:44 Dose: 35 mls/hr Lidocaine HCl (Xylocaine 2%) 0 mg IVPUSH ASDIRECTED PRN PRN Reason: Heart Nitroglycerin (Nitrostat) 0.4 mg SL ASDIRECTED PRN PRN Reason: Heart Prednisone (Prednisone) 60 mg PO WITHBREAKFAST [facility] Last Admin: 10/22/17 08:04 Dose: 60 mg - Exam Quality Assessment: Reports: Supplemental Oxygen, Skin Breakdown General: Reports: Alert, Oriented Neck: Reports: Supple Lungs: Reports: Crackles (Fibrotic crackles) Cardiovascular: Reports: Regular Rate, Regular Rhythm
[2017-10-23] MEDS: Levofloxacin/Dextrose 5%-Water 250 MG in Premix Bag 1 BAG IV SCH (15:30)
[2017-10-23] MEDS: Levofloxacin/Dextrose 5%-Water 500 MG in Premix Bag 1 BAG IV SCH (15:31)
[2017-10-23] MEDS: Enoxaparin 30 MG/0.3 ML Syringe SUBCUT SCH (15:31)
== END 2017-10-23 15:27 | disposition home or self-care (01) | DRG 194 ==
LOC: KA.ED 09:09 → KA.MS 11:02
PROVIDERS: ADMIT Physician Assistant Surgical; ATTEND Nurse Practitioner Family
DX: J18.1 Lobar pneumonia, unspecified organism (principal); J84.9 Interstitial pulmonary disease, unspecified; J84.10 Pulmonary fibrosis, unspecified; I95.9 Hypotension, unspecified; E86.0 Dehydration; L89.151 Pressure ulcer of sacral region, stage 1; I10 Essential (primary) hypertension; E78.5 Hyperlipidemia, unspecified; Z99.81 Dependence on supplemental oxygen; Z79.899 Other long term (current) drug therapy; Z79.82 Long term (current) use of aspirin; Z66 Do not resuscitate
CPT/HCPCS: 36415; 71046; 80048; 80053; 83605; 83880; 84145; 84484; 85025; 85651; 87040; 93005; 94640; 96361; 96374; 99285; A9270-GY; J0696; J1650; J1956; J7030; J7050